=== PATIENT | male | born 1955 | race Caucasian/White ===

== ENCOUNTER 2016-10-30 07:05 | Day surgery (SDC) | payer MEDICARE ==
[~2016-10-30] VITALS: Ht 172.7 cm; Wt 104.3 kg
[~2016-10-30 07:05] MED LIST: Lactated Ringer's 1,000 ML IV ONE
[2016-10-30] MEDS ORDERED: Propofol 10,000 mCg/mL 20 mL Inj ONE (07:06)
[2016-10-30 07:28] VITALS: BP 183/108; PULSE 81; RESP 16; O2SAT 94
[2016-10-30] MEDS ORDERED: METF1000 PO (07:32)
[2016-10-30] MEDS ORDERED: CLOB15CR3 TOP (07:32)
[2016-10-30] MEDS ORDERED: HYG25 PO (07:32)
[2016-10-30] MEDS ORDERED: INSU100V7 SUBQ (07:32)
[2016-10-30] MEDS ORDERED: SERT25TA6 PO (07:32)
[2016-10-30] MEDS ORDERED: LIP40 PO (07:32)
[2016-10-30] MEDS ORDERED: TERA5CAP6 PO (07:32)
[2016-10-30] MEDS ORDERED: AMLO5TAB2 PO (07:32)
[2016-10-30] MEDS ORDERED: ASPI325T32 PO (07:32)
[2016-10-30] MEDS ORDERED: GLIP10TA10 PO (07:32)
[2016-10-30] MEDS ORDERED: METO100T3 PO (07:32)
[2016-10-30] MEDS ORDERED: LISI40TA PO (07:32)
[2016-10-30] MEDS ORDERED: GABA-500 PO (07:32)
[2016-10-30] MEDS ORDERED: Lactated Ringer's 1,000 ML IV SCH (07:56)
[2016-10-30] MEDS ORDERED: Ondansetron 2 mg/mL 2 mL Inj IVPUSH PRN (08:00)
[2016-10-30] MEDS ORDERED: MetoCLOpramide 5 mg/mL 2 mL Inj IVPUSH PRN (08:00)
[2016-10-30 08:25] VITALS: BP 168/96; PULSE 72; RESP 14; O2SAT 96
[2016-10-30 08:38] VITALS: BP 177/103; PULSE 72; RESP 14; O2SAT 98
--- NOTE | 2016-10-30 08:52 | ENDO ---
[address] [address] ENDOSCOPY PROCEDURE PATIENT: CARRIE MORATAYA : 1955 MR#: [id number] ADMIT: 10/30/2016 JOB ID: [id number] TYPE OF OPERATION: Colonoscopy with snare polypectomy x2 and biopsy. PREOPERATIVE DIAGNOSIS(ES): Colorectal cancer screening. POSTOPERATIVE DIAGNOSIS(ES): 1. There is a 5 mm ascending colon polyp, and another 5 mm ascending polyp, removed by hot snare polypectomy. 2. A 2 mm cecal polyp removed by cold biopsy forceps. 3. There were 3 rectal polyps removed by cold biopsy forceps. ANESTHESIA: Monitored anesthesia care. COMPLICATIONS: None. BLOOD LOSS: Minimal. DESCRIPTION OF PROCEDURE: After risks and benefits explained to the patient informed consent was obtained. After anesthesia administered, colonoscope was inserted from rectum to cecum. Mucosa carefully examined. Prep of the patient was fair. After the procedure was done, the scope withdrawn and procedure terminated. FINDINGS: Upon inspection of the anus, no masses, hemorrhoids, ulcers, or fissures that were seen. Throughout the entire examination, there were two 5 mm ascending colon polyp was removed by hot snare polypectomy. Also a 2 mm cecal polyp removed by cold biopsy forceps. There is also three 2 mm rectal polyps removed by cold biopsy forceps. Retroflexion was normal. IMPRESSIONS: 1. Two 5 mm ascending colon polyps, removed by hot snare polypectomy. 2. A 2 mm cecal polyp removed by cold biopsy forceps. 3. There were three 2 mm rectal polyps removed by cold biopsy forceps. RECOMMENDATIONS: Await pathology results. If 3 or more tubular adenoma polyps, then next colonoscopy in 3 years. If less than 3 tubular adenoma polyps, next colonoscopy in 5 years.
--- NOTE | 2016-10-30 16:47 | PCM.HPANE ---
Patient Data Surgeon Admitting Provider: Attending Provider:Antwan Baez MD Primary Care Physician:Donald Miller MD Other Provider:[facility] Reason for Visit Screening Ht/WT & BMI Height (Feet): 5 Height (Inches): 8 Weight (Kilograms): 104.33 Body Mass Index 34.00 Allergies Coded Allergies: No Known Drug Allergies (Verified Allergy, Unknown, 10/29/16) Past Anesthesia History Anesthesia History: Denies:: Abnormal Airway, Anesthesia Reactions, Difficult Intubation, Fam Anesthesia Reaction, Fam Malignant Hypertherm, Malignant Hyperthermia Diabetes History Hx Diabetes?: Yes MRSA MRSA: No Medications Blood Thinner: Aspirin Last Dose Blood Thinner: Oct 28, 2016 Home Meds Incl Beta Luisito: No Reported Medications Terazosin 5 Mg Capsule5 Mg PO HS Ref 0 10/30/16 Atorvastatin (Lipitor)40 Mg Qqvwrk08 Mg PO DAILY Ref 0 10/30/16 Aspirin 325 Mg [id number] Mg PO DAILY #1 BOTTLE 10/30/16 Insulin Glargine (Lantus U100 Insulin Vial)100 Unit/Ml Vial80 Unit SUBQ HS #1 VIAL Ref 0 10/30/16 Lisinopril 40 Mg Biegpn02 Mg PO BID 30 Days Ref 0 10/30/16 Metformin (Glucophage)1,000 Mg Tablet1,000 Mg PO BID Ref 0 10/30/16 Clobetasol Propionate/Emoll (Clobetasol Emollient 0.05% Crm)15 Gm Cream..g.1 Appl TOP BID #1 TUBE 10/30/16 Gabapentin 100 Mg Capsule1,800 Mg PO BID 30 Days Ref 0 10/30/16 Metoprolol Tartrate 100 Mg Qkgwlc777 Mg PO BID 30 Days Ref 0 10/30/16 Sertraline HCl (Sertraline)25 Mg TabletUnknown Dose PO DAILY 30 Days Ref 0 10/30/16 Chlorthalidone 25 Mg Xzxbsp49 Mg PO DAILY #30 TABLET 10/30/16 Glipizide 10 Mg Ovkoza27 Mg PO DAILY 30 Days 10/30/16 Amlodipine 5 Mg Tablet5 Mg PO DAILY Ref 0 10/30/16 History HEENT History: Denies:: Abnormal Airway Difficult Intubation Dysphagia Hearing Problem Hx of Heart Problems?: Yes Cardiovascular History: Positive for:: Hypertension Denies:: AICD Atrial Fibrillation Chest Pain Pacemaker Valvular Heart Disease Hx of Respiratory Problem?: No Respiratory History: Denies:: Asthma COPD Cough Hemoptysis Pneumonia Tuberculosis Neurological History: Positive for:: CVA (6.5-7 yrs ago x2) Hx of GI Problems?: Yes Gastrointestinal History: Denies:: Cirrhosis Diverticulitis Gall Bladder Disease Gastroesphageal Reflux Hiatal Hernia Liver Disease Rectal Bleeding Musculoskeletal History: Denies:: Fibromyalgia Joint Replacement Psycho Social History: Positive for:: Anxiety (every once in a while on days like today) Denies:: Hx Depression Hx Surgeries?: Yes (knee sx, tonsillectomy ) Hx Any Other Health Problems?: Yes Hx Diabetes: Yes Hx Alcohol Use: Yes Stop/Bang Treated for Sleep Apnea?: Yes Do You Have a CPAP Machine?: Yes Risk Assessment Category Category 1A: Patient has history of documented sleep apnea, and HAS NOT received any narcotic, sedative or anesthesia administration during this stay. Category 1B: Patient has history of documented sleep apnea, and HAS received any narcotic , sedative or anesthesia administration during this stay Category 2: Patient has SUSPECTED Obstructive Sleep Apnea, and HAS received any narcotic , sedative or anesthesia administration during this stay. Category 3: Patient has SUSPECTED Obstructive Sleep Apnea and HAS NOT received narcotic, sedative or anesthesia administration during this stay. Category 4: Outpatient in Procedural Areas with known sleep apnea or who screen positive for High Risk via the STOP/BANG questionnaire. Exam Exam Vital Signs Vital Signs Date Time Temp Pulse Resp B/P Pulse Ox O2 Delivery O2 Flow Rate FiO2 10/30/16 07:28 36.5 81 16 183/108 94 Room Air General Appearance: Alert, Oriented X3, Cooperative, No Acute Distress HEENT/AIRWAY: MP 2, Neck Movement (FROM), Mouth Opening (3 FBMO) Lungs: Clear to Auscultation, Normal Air Movement Heart: Exam Unremarkable, Regular Rate/Rhythm, No Murmurs/Rubs/Gallops Plan Impression Patient chart reviewed, patient interviewed and anesthestic plan with risks, benefits, and alternatives discussed, and informed consent obtained. NPO Status: > 8 hrs ASA Physical Status: ASA3 Severe Disease (right sided paralysis) Anesthetic Plan: MAC Bene/Risks/Altern/Consents: Yes HP Complete Prior to Induction: Yes Walt Rollins MD Oct 30, 2016 07:40
--- NOTE | 2016-10-30 16:47 | PCM.ANEP1 ---
Post Anesthesia Phase 1 PACU Phase 1 Assessment Anesthetic Administered: MAC Level of Alertness: Awake, talking AUGUSTINE's with Equal Strength: Yes Pain: No Nausea or Vomiting: No Cardiovascular Function and Hy: No Oxygen Delivery: Room Air Lungs: Clear to Auscultation, Normal Air Movement Dermatome Level: Full Sensation Complications: No Follow up Care: No Walt Rollins MD Oct 30, 2016 16:47
--- NOTE | 2016-10-31 18:30 | PATH ---
SURGICAL PATHOLOGY Attending Physician:Antwan Baez MD CASE STATUS: Signed Out PATIENT NAME: CARRIE MORATAYA PID: [id number] : 1955 DATE COLLECTED:10/30/2016 17:41 SPECIMEN: 1: Colon, Biopsy 2: Colon, Biopsy 3: Colon, Biopsy 4: Rectum, Biopsy CLINICAL HISTORY: 1). ASCENDING COLON POLYP #1 X1 2). ASCENDING COLON POLYP #2 X1 3). CECAL POLYP X1 4). RECTAL POLYPS X3 FINAL DIAGNOSIS: 1. Ascending Colon, Polyp #1, Biopsy: Tubular adenoma; negative for high-grade dysplasia. 2. Ascending Colon Polyp #2, Biopsy: Tubular adenoma; negative for high-grade dysplasia. 3. Cecum, Polyp, Biopsy: Tubular adenoma; negative for high-grade dysplasia. 4. Rectal Polyps, Biopsies: Fragments of hyperplastic polyp. ICD10: K63.5 GROSS DESCRIPTION: The specimen is received in four formalin filled containers labeled with the patient's name. 1). The specimen is sublabeled "ascending colon polyp #1" and consists of a 0.6 x 0.5 x 0.4 CM portion of tissue which is entirely submitted in cassette 1A. 2). The specimen is sublabeled "ascending colon polyp #2" and consists of a 0.3 x 0.2 x 0.2 CM portion of tissue which is entirely submitted in cassette 2A. 3). The specimen is sublabeled "cecal polyp" and consists of a 0.2 x 0.2 x 0.2 CM portion of tissue which is entirely submitted in cassette 3A. 4). The specimen is sublabeled "rectal polyps" and consists of 3 portions of tissue which aggregate to 0.4 x 0.4 x 0.3 CM. The specimen is entirely submitted in cassette 4A. 10/30/2016 [facility] ICD-9 CODES: CPT CODES: 1: 01702 2: 28933 3: 21049 4: 25009 Electronically Signed Out Shani Manley MD [facility] [address], [place] [address] Technical component performed at [facility], [facility] [address], [place], [address]
== END 2016-10-30 23:59 | disposition home or self-care (01) ==
LOC: END 07:05
PROVIDERS: ATTEND Internal Medicine Gastroenterology
DX: Z12.11 Encounter for screening for malignant neoplasm of colon (principal); D12.2 Benign neoplasm of ascending colon; D12.0 Benign neoplasm of cecum; D12.8 Benign neoplasm of rectum; I10 Essential (primary) hypertension; E78.00 Pure hypercholesterolemia, unspecified; E11.9 Type 2 diabetes mellitus without complications; N40.0 Benign prostatic hyperplasia without lower urinary tract symptoms; F32.9 Major depressive disorder, single episode, unspecified; Z86.73 Personal history of transient ischemic attack (TIA), and cerebral infarction without residual deficits; Z87.891 Personal history of nicotine dependence; Z79.84 Long term (current) use of oral hypoglycemic drugs; Z79.82 Long term (current) use of aspirin
CPT/HCPCS: 45380; 45385; J7120